=== PATIENT | female | born 1995 | race Caucasian/White ===

== ENCOUNTER 2018-08-10 18:48 | Emergency (ER) | payer OTHER ==
[2018-08-10 19:45] VITALS: BP 110/76
[2018-08-10] MEDS ORDERED: Tobramycin 0.3% OPHTH.SOL* 5 ML BOT (regular eye drops) BOTH EYES ONE (20:02)
--- NOTE | 2018-08-10 20:05 | UC ---
Eye Complaint HPI - HPI Summary HPI Summary: 23-year-old woman comes in with a chief complaint of bilateral eye redness and draining with crusting for 1 day. She has had some mild upper respiratory tract infection symptoms. No sore throat no fevers. The crusting gets better when she wipes off. She doesn't withdraw for gets worse. Does not wear contacts no known trauma. No environmental allergy symptoms. - History of Current Complaint Chief Complaint: UCEye Stated Complaint: EYE IRRITATION Time Seen by Provider: 08/10/18 19:40 Pain Intensity: 0 - Allergies/Home Medications Allergies/Adverse Reactions: Allergies Allergy/AdvReac Type Severity Reaction Status Date / Time No Known Allergies Allergy Verified 08/10/18 19:45 Home Medications: Home Medications NK [No Home Medications Reported] 08/10/18 [History Confirmed 08/10/18] PMH/Surg Hx/FS Hx/Imm Hx Previously Healthy: Yes - Surgical History Surgical History: None - Family History Known Family History: Positive: Non-Contributory - Social History Alcohol Use: Occasionally Substance Use Type: None Smoking Status (MU): Never Smoked Tobacco Review of Systems All Other Systems Reviewed And Are Negative: Yes Constitutional: Positive: Negative Skin: Positive: Negative Eyes: Positive: Drainage, Eye Redness ENT: Positive: Negative Respiratory: Positive: Negative Cardiovascular: Positive: Negative Gastrointestinal: Positive: Negative Motor: Positive: Negative Neurovascular: Positive: Negative Musculoskeletal: Positive: Negative Neurological: Positive: Negative Psychological: Positive: Negative Is Patient Immunocompromised?: No Physical Exam Triage Information Reviewed: Yes Appearance: Well-Appearing, No Pain Distress, Well-Nourished Vital Signs: Initial Vital Signs Temp 98.1 F 08/10/18 19:41 Pulse 77 08/10/18 19:41 Resp 18 08/10/18 19:41 BP 110/76 08/10/18 19:41 Pulse Ox 100 08/10/18 19:41 Vital Signs Reviewed: Yes Eyes: Positive: Conjunctiva Inflamed, Discharge, Other: - PERRLA/EOMI ENT Exam: Normal ENT: Positive: Normal ENT inspection, Pharynx normal, TMs normal Neck exam: Normal Neck: Positive: Supple Respiratory: Positive: Lungs clear, Normal breath sounds, No respiratory distress Cardiovascular: Positive: RRR Musculoskeletal Exam: Normal Musculoskeletal: Positive: Strength Intact, ROM Intact Neurological Exam: Normal Neurological: Positive: Alert Psychological Exam: Normal Psychological: Positive: Age Appropriate Behavior Skin Exam: Normal Eye Complaint Course/Dx - Differential Dx/Diagnosis Provider Diagnosis: Conjunctivitis, acute, bilateral Discharge - Sign-Out/Discharge Documenting (check all that apply): Patient Departure All imaging exams completed and their final reports reviewed: No Studies - Discharge Plan Condition: Stable Disposition: HOME Patient Education Materials: Conjunctivitis (ED) Referrals: [facility] [place] [facility] [Outside] [facility] [Provider Group] Additional Instructions: FOLLOW UP WITH YOUR PRIMARY CARE DOCTOR OR OPHTHALMOLOGY IF NOT COMPLETELY IMPROVED. GET REEVALUATED SOONER IF YOUR CONDITION WORSENS OR ANY QUESTIONS OR CONCERNS. - Billing Disposition and Condition Condition: STABLE Disposition: Home
== END 2018-08-10 20:20 | disposition home or self-care (01) ==
LOC: UCEAST 18:48
DX: H10.9 Unspecified conjunctivitis (principal)
CPT/HCPCS: 99202; A9270-GY; G0463